=== PATIENT | male | born 1950 | race Caucasian/White ===

== ENCOUNTER → 2017-12-07 | Outpatient (CLI) | payer OTHER ==
[2017-12-07] VITALS (12 sets, daily range): BP systolic 134–185; BP diastolic 68–85
[~2017-12-07] VITALS: Ht 177.8 cm; Wt 80.7 kg
[~2017-12-07] MED LIST: ATORVASTATIN CA40 MG PO; CITRACAL + D31 EACH PO; MULTIGEN CAPLET1 CAP PO; MULTIVITAMINS1 EAC7 PO; OMEPRAZOLE40 MG PO; SYNTHROID150 MCG PO
[2017-12-07 13:50] LABS: APTT 26.6 Seconds (25.0-31.3); INR 1.1
[2017-12-07 13:55] LABS: HEMOGLOBIN 10.5 gm/dL (14.0-18.0); MCH 34.8 pg (26.0-34.0); MCV 99.2 fL (80.0-100.0); MPV 7.8 fl. (7.2-11.1); RBC 3.02 mil/uL (4.50-6.00); RDW-CV 11.8 % (10.5-14.5); WBC 5.7 thou/uL (4.0-11.0)
== END | disposition home or self-care (01) ==
LOC: M.ULTRA 10:00
PROVIDERS: Radiology Diagnostic Radiology
DX: C61 Malignant neoplasm of prostate (principal); I10 Essential (primary) hypertension; E11.9 Type 2 diabetes mellitus without complications; Z98.84 Bariatric surgery status; Z98.890 Other specified postprocedural states; Z85.818 Personal history of malignant neoplasm of other sites of lip, oral cavity, and pharynx; Z79.899 Other long term (current) drug therapy; Z79.01 Long term (current) use of anticoagulants